=== PATIENT | female | born 1975 | race Caucasian/White ===

== ENCOUNTER → 2021-10-29 | Outpatient (CLI) | payer OTHER ==
[~2021-10-29] MED LIST: GADOTERATE 0.5 MMOL/ML (CLARISCAN) 20 ML VIAL IV ONE
--- NOTE | 2021-10-29 13:29 | Diagnostic Imaging Report ---
PROCEDURE: MR imaging of the brain with and without contrast. TECHNIQUE: Multiplanar, multisequence MR imaging of the brain was performed with and without contrast. INDICATION: Migraine with aura. COMPARISON: None FINDINGS: Punctate abnormal FLAIR bright focus is seen within the deep white matter at the right parieto-occipital junction (image 11, series 5). Area in question measures 3 to 4 mm in diameter. A few other similar appearing punctate foci are also seen within the superior gyrus of the right frontal lobe as well as within the left parietal lobes (images 7, 9, and 10, series 5). There is no associated diffusion restriction or postcontrast enhancement in regards to these foci. There is no associated mass effect or midline shift. Postcontrast images show no other abnormal areas of enhancement. Otherwise, exam is unremarkable. There is no acute infarct. No intra or extra-axial intracranial hemorrhage is seen. No other extra-axial masses or fluid collections are identified. Ventricles and cortical sulci are normal in size and contour. Midline craniocervical anatomy is maintained. Major expected intracranial flow voids are identified. No focal calvarial lesions are seen. Paranasal sinuses and mastoid air cells are clear. IMPRESSION: 1. Few scattered nonspecific punctate FLAIR bright foci are identified within the periventricular and subcortical deep white matter. Appearance is not characteristic for demyelinating process such as multiple sclerosis, but correlation with CSF flow studies may be of benefit. Alternatively, findings can also be seen as a sequela of previous migraines as well as early chronic small vessel ischemic changes. 2. No acute infarct, mass, or intracranial hemorrhage. Dictated by: Dictated on workstation # [id number]
== END ==
LOC: RAD 10:15
PROVIDERS: ATTEND Registered Nurse Emergency
DX: G43.109 Migraine with aura, not intractable, without status migrainosus (principal)
CPT/HCPCS: 70553

== ENCOUNTER → 2021-11-20 | Outpatient (CLI) | payer OTHER ==
--- NOTE | 2021-11-20 17:06 | Diagnostic Imaging Report ---
Indication: Bilateral leg claudication Ankle-brachial index The right ankle-brachial index is 1.1. Left ankle-brachial index is 1.13. IMPRESSION: Normal bilateral ankle brachial indices Dictated by: Dictated on workstation # [id number]
== END ==
LOC: RAD 14:30
PROVIDERS: ATTEND Registered Nurse Emergency
DX: I73.9 Peripheral vascular disease, unspecified (principal)
CPT/HCPCS: 93922